=== PATIENT | female | born 1950 | race Caucasian/White ===

== ENCOUNTER 2017-06-26 07:36 | Emergency (ER) | payer OTHER ==
[~2017-06-26] VITALS: Ht 152.4 cm; Wt 97.9 kg
[~2017-06-26 07:36] MED LIST: ACTEMRA IV; ADVAIR 250/501 DISK IH; AMBIEN CR12.5 MG PO; APRESOLINE25 MG PO; Ambien PO; COLACE100 MG PO; COLCRYS PO; COLCRYS0.6 MG PO; CRESTOR5 MG PO; Colace PO; FIBER TABS625 MG PO; FISH OIL DR 1,1 EAC1 PO; FOLIC ACID0.8 MG PO; Fish Oil PO; Folic Acid PO; HYDROXYCHLOROQUINE PO; KADIAN10 MG PO; KADIAN20 MG PO; KLONOPIN0.5 M1 PO; KLONOPIN1 MG PO; Kadian PO; KlonoPIN PO; Lexapro PO; METHOTREXATE PO; NEURONTIN600 MG PO; PLAQUENIL200 MG PO; PREVACID30 MG PO; PRINZIDE 20-121 EACH PO; PROAIR HFA8.5 GM IH; Prevacid Solutab PO; Proventil,Ventolin H IH; QUALAQUIN PO; QUALAQUIN324 MG PO; REQUIP1 MG PO; REQUIP3 MG PO; REQUIP4 MG PO; RESTASIS 01 DROP/0.4 BOTH EYES; Requip PO; Restasis 0.05% BOTH EYES; SAVELLA50 MG PO; SINGULAIR10 MG PO; SPIRIVA1 INHALATI IH; Singulair PO; TOPROL XL25 MG PO; TRAMADOL HCL50 MG PO; VERAMYST10 GM IH; WELLBUTRIN SR150 MG PO; Wellbutrin SR PO; ZANAFLEX4 M1 PO; ZITHROMAX Z-PA250 MG PO; Zestoretic,Prinzide PO
[2017-06-26] MEDS ORDERED: PREDNISONE20 MG PO (08:20)
[2017-06-26] MEDS ORDERED: LIDODERM 5% P1 PATCH TD (08:20)
[2017-06-26 08:54] VITALS: BP 154/82
== END 2017-06-26 08:54 | disposition home or self-care (01) ==
LOC: EME 07:36
DX: M54.31 Sciatica, right side (principal); M54.32 Sciatica, left side; M54.9 Dorsalgia, unspecified; G89.29 Other chronic pain; J45.909 Unspecified asthma, uncomplicated; I10 Essential (primary) hypertension; F41.9 Anxiety disorder, unspecified; F32.9 Major depressive disorder, single episode, unspecified; R73.03 Prediabetes; Z88.0 Allergy status to penicillin
CPT/HCPCS: 99281; 99283; J1885; J7512

== ENCOUNTER 2017-09-21 09:02 | Inpatient (IN) | payer OTHER ==
[~2017-09-21] VITALS: Ht 149.9 cm; Wt 100.2 kg
[~2017-09-21 09:02] MED LIST changes: +ACTEMRA80 MG/4 ML IV; +ADDERALL20 MG PO; +ALBUTEROL1.25 MG/3 IH; +ASCORBIC ACID500 M3 PO; +BYSTOLIC2.5 MG PO; +CICLODAN90 GM TP; +COLCHICINE0.6 M1 PO; +DESYREL100 MG PO; +ERGOCALCIF50000 UNIT PO; +FISH OIL 1,0001 EAC7 PO; +FLONASE ALLERG9.9 ML BOTH NARES; +FOLIC ACID1 MG PO; +KLOR-CON 1010 ME1 PO; +LASIX20 MG PO; +LEXAPRO20 MG PO; +LIDODERM 5% P1 PATCH TD; +MELOXICAM15 MG PO; +MULTIPLE VITAM1 EACH PO; +NEUPRO1 EAC1 TD; +PREDNISONE20 MG PO; +PROBIOTIC1 EAC1 PO; +QUESTRAN PACKET4 GM PO; +VENTOLIN HFA18 GM IH; +VIBERZI75 MG PO; +VITAMIN B-121000 MC3 PO
[2017-09-21 09:43] VITALS: BP 118/53
[2017-09-21 09:50] LABS: INTER. NORMALIZED RATIO 1.1
[2017-09-21 09:53] LABS: PTT 28.7 SEC (25-37)
[2017-09-21 18:20] VITALS: BP 154/85
[2017-09-21 18:34] VITALS: BP 154/85
[2017-09-21 19:32] VITALS: BP 127/88
[2017-09-21 23:15] VITALS: BP 168/72
[2017-09-22 03:48] VITALS: BP 146/70
[2017-09-22 08:18] VITALS: BP 167/75
[2017-09-22] MEDS ORDERED: HYDROCODON-ACE1 EAC7 PO (08:40)
[2017-09-22 12:00] VITALS: BP 146/67
[2017-09-22 15:39] VITALS: BP 144/67
[2017-09-22] MEDS ORDERED: CYCLOBENZAPRINE10 MG PO (16:55)
[2017-09-22 23:29] VITALS: BP 165/74
[2017-09-23 08:00] VITALS: BP 143/74
[2017-09-23 15:10] VITALS: BP 129/60
[2017-09-24 00:17] VITALS: BP 122/58
[2017-09-24 07:45] VITALS: BP 154/71
== END 2017-09-24 15:20 | disposition home health service (06) | DRG 516 ==
LOC: SDC 09:02 → 2SOUTH 13:50 → 3EAST 13:50 → SDC 14:22 → ENRESERV 15:05 → 3EAST 17:53
PROVIDERS: Neurological Surgery
PROC: 01NB0ZZ Release Lumbar Nerve, Open Approach (ICD-10-PCS; principal; 2017-09-21)
DX: M48.061 Spinal stenosis, lumbar region without neurogenic claudication (principal); Z68.41 Body mass index [BMI] 40.0-44.9, adult; M48.07 Spinal stenosis, lumbosacral region; E66.9 Obesity, unspecified; M35.00 Sjogren syndrome, unspecified; F32.9 Major depressive disorder, single episode, unspecified; F41.9 Anxiety disorder, unspecified; G25.81 Restless legs syndrome; J45.909 Unspecified asthma, uncomplicated; G47.33 Obstructive sleep apnea (adult) (pediatric); M06.9 Rheumatoid arthritis, unspecified; H54.7 Unspecified visual loss; Z96.619 Presence of unspecified artificial shoulder joint; Z96.651 Presence of right artificial knee joint; Z98.1 Arthrodesis status; Z90.49 Acquired absence of other specified parts of digestive tract
CPT/HCPCS: 72100; 76000; 85049; 85610; 85730; 94640; 94640 76; 94799; 99202; J0330; J1040; J1100; J1170; J2250; J2270; J2310; J2405; J2710; J3010; J3370; J3480

== ENCOUNTER 2017-10-26 13:41 | Day surgery (SDC) | payer OTHER ==
[~2017-10-26] VITALS: Ht 149.9 cm; Wt 97.5 kg
[~2017-10-26 13:41] MED LIST changes: +BACTRIM,SEPT1 TABLET PO; +CYCLOBENZAPRINE10 MG PO; +HYDROCODON-ACE1 EAC7 PO
[2017-10-26 14:17] LABS: BASOPHIL (%) 0.4 % (0-1); EOSINOPHIL (%) 1.2 % (0-5); EOSINOPHIL COUNT 0.1 K/uL (0-0.3); HEMATOCRIT 39.5 % (36.0-46.0); IMMATURE GRANULOCYTE (%) 0.4 % (0.0-0.7); LYMPHOCYTE (%) 16.3 % (15-42); LYMPHOCYTE COUNT 1.8 K/uL (1.0-2.8); MCH 34.3 PG (29.0-34.0); MCHC 32.9 G/DL (30.0-36.0); MCV 104.2 FL (83-99); MONOCYTE (%) 7.8 % (3-12); MONOCYTE COUNT 0.9 K/uL (0-0.8); NEUTROPHIL (%) 73.9 % (45-76); RBC DIS.WIDTH-CV 11.9 % (11.8-14.6); RBC DIS.WIDTH-SD 46.3 % (39-53); RED BLOOD COUNT 3.79 M/uL (3.80-5.20); WHITE BLOOD COUNT 10.8 K/uL (4.1-10.2)
[2017-10-26 14:34] VITALS: BP 119/60
[2017-10-26 14:42] LABS: PLATELET COUNT 200 K/uL (156-360)
[2017-10-26 14:44] LABS: C-REACTIVE PROTEIN 109.7 MG/L (0-10); CHLORIDE 101 MEQ/L (99-109); CREATININE 0.8 MG/DL (0.6-1.3); GFR ESTIMATE (CALCULATED) > 59 mL/min/; GLUCOSE 129 mg/dL (70-99); POTASSIUM 3.7 MEQ/L (3.7-5.4); SODIUM 137 MEQ/L (136-147); UREA NITROGEN (BUN) 10 mg/dL (9-23)
[2017-10-26 18:20] VITALS: BP 161/66
[2017-10-26 19:20] VITALS: BP 121/59
[2017-10-26 20:20] VITALS: BP 126/59
[2017-10-26 20:54] VITALS: BP 115/59
[2017-10-26 21:03] LABS: ERTH.SED.RATE 46 MM/HR (0-30)
[2017-10-26 23:50] VITALS: BP 128/74
[2017-10-27 03:32] VITALS: BP 156/69
[2017-10-27 08:52] VITALS: BP 157/72
[2017-10-27] MEDS ORDERED: CYCLOBENZAPRINE10 MG PO (09:26)
[2017-10-27] MEDS ORDERED: HYDROCODON-ACE1 EAC7 PO (09:26)
[2017-10-27] MEDS ORDERED: BACTRIM,SEPT1 TABLET PO (09:26)
== END 2017-10-27 13:29 | disposition home or self-care (01) ==
LOC: SDC 13:41 → 2SOUTH 18:43 → 2EAST 18:43 → ENRESERV 18:43 → 2SOUTH 18:43 → ENRESERV 19:11 → 2EAST 20:21 → ENPENDDIS 10-27 → 2EAST 10-27 13:29
PROVIDERS: Neurological Surgery
PROC: 0J970ZZ Drainage of Back Subcutaneous Tissue and Fascia, Open Approach (ICD-10-PCS; principal; 2017-10-26)
DX: T81.4XXA Infection following a procedure, initial encounter (principal); M96.842 Postprocedural seroma of a musculoskeletal structure following a musculoskeletal system procedure; E66.9 Obesity, unspecified; Z68.41 Body mass index [BMI] 40.0-44.9, adult; M06.9 Rheumatoid arthritis, unspecified
CPT/HCPCS: 80048; 85025; 85652; 86140; 86141; 87070; 87075; 87077; 87186; 87205; 94640; 94640 76; 94799; G0378; J0330; J1170; J2250; J2405; J3010; J3370